=== PATIENT | male | born 1970 | race Caucasian/White ===

== ENCOUNTER 2018-12-26 09:46 | Outpatient (CLI) | payer OTHER ==
[2018-12-26 10:20] LABS: Hematocrit 43.5 % (35.5-45.6); Hemoglobin 14.8 gm/dl (11.8-15.2)
[2018-12-26 10:39] LABS: Erythrocyte Sedimentation Rate 10 mm/Hr (0-20)
[2018-12-26 10:44] LABS: Alanine Aminotransferase 7 units/L (7-56); Albumin 4.8 g/dL (3.9-5); BUN/Creatinine Ratio 24; Blood Urea Nitrogen 12 mg/dL (9-20); Calcium 9.5 mg/dL (8.4-10.2); Hemolysis Index 3
[2018-12-26 10:46] LABS: Mean Corpuscular Volume 89 fl (84-94); Red Blood Count 4.84 M/mm3 (3.65-5.03)
[2018-12-26 10:47] LABS: Mean Corpuscular HGB Conc 34 % (32-34); Platelet Count 163 K/mm3 (140-440); Red Cell Distribution Width 13.9 % (13.2-15.2)
[2018-12-31 21:48] LABS: ANA Screen, IFA Negative (Negative)
== END 2018-12-26 09:47 | disposition home or self-care (01) ==
LOC: LAB 09:46
PROVIDERS: ATTEND Specialist
DX: G50.0 Trigeminal neuralgia (principal)
CPT/HCPCS: 36415; 80053; 82607; 83036; 83921; 84443; 85027; 85652; 86038; 86225; 86592

== ENCOUNTER 2019-01-08 11:56 | Outpatient (CLI) | payer OTHER | END 2019-01-08 11:57 | disposition home or self-care (01) | LOC: LAB 11:56 | PROVIDERS: ATTEND Specialist | DX: G50.0 Trigeminal neuralgia (principal) | CPT/HCPCS: 36415; 83036; 86225; 86592 ==